=== PATIENT | male | born 1935 | race Caucasian/White ===

== ENCOUNTER 2023-04-25 19:20 | Emergency (ER) | payer MEDICARE, SELFPAY ==
[2023-04-25 19:23] VITALS: BP 160/72; BMI 25.1
[2023-04-25 19:38] LABS: % Basophils 0.6 % (0-2); % Eosinophils 1.4 % (0-6); % Immature Granulocytes 0.4 % (0-0.5); % Neutrophils 51.6 % (42.2-75.2); Absolute Basophils 0.1 10^3/uL (0-0.2); Absolute Eosinophils 0.2 10^3/uL (0-0.7); Absolute Lymphocytes 3.3 10^3/uL (1.2-3.4); Absolute Monocytes 1.5 10^3/uL (0.1-0.6); Absolute Neutrophils 5.4 10^3/uL (1.4-6.5); Hematocrit 39.7 % (39.0-52.0); Mean Corp Hgb Conc. 35.3 g/dL (33.0-37.0); Mean Corpuscular Volume 90.8 fL (80.0-94.0); Mean Platelet Volume 9.9 fL (7.4-10.4); Nucleated Red Blood Cells % 0 % (-); Platelet Count 226 10^3/uL (130-400); Red Blood Cell Count 4.37 10^6/uL (4.70-6.10); Red Cell Dist. Width 16.2 % (11.5-14.5); White Blood Cell Count 10.4 10^3/uL (4.8-10.8)
[2023-04-25 19:59] LABS: ALT (SGPT) 16 U/L (0-50); AST (SGOT) 27 U/L (17-59); Albumin 4.1 g/dl (3.5-5.0); Alkaline Phosphatase 95 U/L (38-126); Blood Urea Nitrogen 10 mg/dl (9-20); Calcium 9.3 mg/dl (8.4-10.2); Carbon Dioxide 27 mmol/L (22-30); Chloride 95 mmol/L (98-107); Estimated Creatinine Clearance 82 ml/min; Glucose 88 mg/dl (70-99); NT-proBNP 1900 pg/ml; Sodium 132 mmol/L (135-145); Total Bilirubin 0.8 mg/dl (0.2-1.3); Total Protein 7.1 g/dl (6.3-8.2); Troponin I < 0.012 ng/ml; eGFR > 60.00
[2023-04-25 20:00] VITALS: BP 143/66
--- NOTE | 2023-04-25 20:03 | ED.GENMED ---
History of Present Illness
General
Chief Complaint: Breathing Problem
Source: patient
Exam Limitations: none
Time Seen by Provider: 04/25/23 19:24
Travel History
Have you had any contact with someone who has COVID-19?: No
Do you have any symptoms of coronavirus? Fever > 100 degrees, chills, cough, shortness of breath, sore throat, loss of taste or smell, muscle aches, or headache?: No
History of Present Illness
History of Present Illness:
This is a 87 year old male that comes in with c/o SOB. States that he is friends with Dr. Soto and he told him to come to the ER. States that he has been SOB and he said that he had rales. Patient states that he has a medicare compliance auditor 18/10 that lives
with him. States that he is bedridden and that he just lays in bed and watches TV. States that he started with SOB and a cough. States that he also feels lightheaded. States that he got scarred. denies any fever, chills, chest pain, abd pain,
nausea, vomiting, diarrhea, headache, urinary burning .
Past History
Past History
ED Past Medical History: Arrthythmia (Atrial fib), CAD, Cancer (melanoma), COPD, GERD, HTN, Hypercholesterolemia, Psychiatric (Depression), Other (Peripheral vascular disease with bilateral carotid stenosis, Rheumatoid arthritis, back pain, TIA,
Spinal stenosis, PNA, Diverticulitis, Hiatal hernia, Ulcers, DVT left arm removed), Other (Bowel syndrome, prior history of atypical chest pain, Lyme disease, ) and Other (History of Lymes disease)
ED Past Surgical History: Appendectomy, Orthopedic (right hip replacement, left carpal tunnel), Tonsilectomy (Adenoids) and Other ( pancreatic cyst surgery from an injury as a child, Cataracts, Left carotid endarterectomy)
Social History
Tobacco: Smoker (1.5-2ppd)
Alcohol: Daily ([place] 3-4 glasses)
Drug: None
Personal:
Living: alone (With medicare compliance auditor 18/10)
Employment: Retired
Family History
Family History: Other (Noncontributory)
Review of Systems
Review of Systems
All Other Systems: ROS reviewed and negative except as documented in HPI and ROS
Constitutional: Reports no symptoms; Denies fever or chills
EENT: Reports no symptoms
Respiratory: Reports cough and trouble breathing
Cardiac: Reports no symptoms; Denies chest pain
ABD/GI: Reports no symptoms; Denies abdominal pain, nausea, vomiting or diarrhea
: Reports no symptoms; Denies dysuria, frequency or urgency
Musculoskeletal: Reports no symptoms
Skin: Reports no symptoms
Neurological: Reports dizzy (Lightheaded); Denies headache
Psychiatric: Reports no symptoms
Phy Exam
General Physical Exam
General Presentation: no apparent distress
General age: appears stated age
General Skin: warm and dry
General Habitus: elderly
General Mental: alert
General Hydration: dry mucous membranes
ENT Exam
ENT Exam: TM's normal, pharynx normal and neck supple
Eye Exam
Eye Exam: EOMI
Cardiovascular Exam
Cardiovascular Exam: no edema, normal peripheral pulses and irregularly irregular
Pulmonary Exam
Pulmonary Exam: no rhonchi, decreased breath sounds and other (Fine crackles at bases with Exp wheezing, Moist cough noted)
Gastrointestinal Exam
Gastrointestinal Exam: normal bowel sounds, non tender, soft, no organomegaly, no pulsatile mass and non distended
Musculoskeletal Exam
Musculoskeletal Exam: full ROM and no edema
Skin Exam
Skin Exam: normal color, warm/dry, no rash and no petechia
Psychiatric Exam
Psychiatric Exam: normal mood/affect
Scores
Heart Failure Risk
Heart Failure Risk Score: Not Applicable
Course
Orders/Labs/Results
Orders:
Orders
04/25/23 19:22
Electrocardiogram (*1) Urgent
Reason for Study: Other
Other Reason for Exam: Respiratory Distress
EKG- Treatment ONCE
CR Chest - 2 Views Urgent
Comment:
Reason For Exam: respiratory distress
04/25/23 19:27
Complete Blood Count/With Diff Urgent
Comprehensive Metabolic Panel Urgent
NT-proBNP Urgent
Troponin I Urgent
04/25/23 20:11
Ipratropium/Albuterol Sulfate [Duoneb] 3 ml INH R NOW ONE
04/25/23 20:15
COVID-19 Antigen Urgent
Source: Nasal Swab
04/25/23 22:26
Furosemide [Lasix] 40 mg IV NOW STA
Abnormal Lab Results
04/25/23
19:27
RBC 4.37 L 10^6/uL
(4.70-6.10)
MCH 32.0 H pg
(27.0-31.0)
RDW 16.2 H %
(11.5-14.5)
Absolute Monos (auto) 1.5 H 10^3/uL
(0.1-0.6)
Monocytes % 14.0 H %
(1.7-9.3)
Sodium 132 L mmol/L
(135-145)
Chloride 95 L mmol/L
(98-107)
Creatinine 0.6 L mg/dL
(0.7-1.3)
04/25/23 19:27
04/25/23 19:27
Sodium slightly low. Chloride low. Troponin <0.012, Pro-BNP 1900, COVID negative,
Vital Signs
Initial and Last Documented VS:
Initial Vital Signs
Temp Pulse Resp BP Pulse Ox
97.4 F 62 18 160/72 98
04/25/23 19:23 04/25/23 19:23 04/25/23 19:23 04/25/23 19:23 04/25/23 19:23
Last Documented Vital Signs
Temp Pulse Resp BP Pulse Ox
97.4 F 76 16 143/88 98
04/25/23 19:23 04/25/23 22:31 04/25/23 22:31 04/25/23 22:31 04/25/23 19:23
MDM/Problems Addressed
Differential Diagnosis Includes:
PNA, COPD exacerbation. CHF
MDM/Problems Addressed:
This is a 87 year old male that comes in with c/o SOB. States that he is bedridden and that he is SOB and he got scarred. States that he is friends with a physician that use to work in the ER and he was told to come to the hospital.
Will get labs, Chest x-ray
Back into see patient. Explained that his Troponin is normal and his chest x-ray is negative for any acute process. His Pro-BNP is elevated but there is no CHF. COVID is negative. Feel that the patient can go home. Will give a dose of IV Lasix to
help with any extra fluid. Patient to follow up with the family doctor. Return with any concerns.
Chronic conditions affecting care: COPD
Acute Exacerbation and/or Progression of Chronic Illness: COPD
*Radiology
Radiology exam reviewed: radiology read reviewed (Chest-No acute cardiopulmonary process)
*Pulse Oximetry
Patient hypoxic: no
*EKG
Interpreted by ED Provider?: Yes
Heart Rate: 72
Rate: normal
Rhythm: a-fib (Vs junctional)
[place]: left axis deviation
QRS Pattern: normal QRS
Ischemia: no ischemia (Checked by Dr. Herrera)
*Blower Installer Interpretation
Rate: normal
Heart Rate: 64
Rhythm: a-fib
*Critical Care Note
Total Time (30-74mins, 75-104mins- exclusive of procedures): Not Applicable
ED Attending Note
-
Portions of this chart may have been created with voice recognition software.� Occasional wrong word or��sound alike� substitutions may have occurred due to the inherent limitations of voice recognition software.
Discharge Plan
Departure
Patient Disposition: Home (Routine Discharge)
Date of Disposition: 04/25/23
Time of Disposition: 23:22
Patient with high blood pressure during this ER visit?: Yes
Condition: Good
Covid-19: Negative COVID-19
Discharge Problem:
SOB (shortness of breath)
Instructions: Shortness of Breath (Dyspnea) (DC), BLOOD PRESSURE
Prescriptions:
No Action
rosuvastatin 20 MG tablet
20 mg PO DAILY
amlodipine 5 MG tablet
5 mg PO DAILY Qty: 0 0RF
gabapentin 600 mg Tablet
600 mg PO BID@0800,1700
gabapentin 600 mg Tablet
1,200 mg PO HS
ascorbic acid (vitamin C) [Vitamin C] 500 mg Tablet
500 mg PO DAILY
tamsulosin 0.4 mg Capsule
0.4 mg PO DAILY
coenzyme Q10 [CoQ-10] 100 mg Capsule
100 mg PO DAILY
cholecalciferol (vitamin D3) [Vitamin D3] 50 mcg (2,000 unit) Tablet
50 mcg PO DAILY
Eliquis 5 mg Tablet
5 mg PO BID
psyllium husk 3.4 gram/5.4 gram Powder
1 tbsp PO DAILY
colchicine 0.6 MG tablet
0.6 mg PO DAILYPRN PRN (Reason: gout)
furosemide [Lasix] 20 mg tablet
20 mg PO Q OTHER DAY Qty: 30 0RF
prednisone 10 mg Tablet
See Rx Instructions .ROUTE .COMPLEX Qty: 30 0RF
Rx Instructions:
Take By Mouth:
40 mg daily x3 days, 30 mg daily x3 days,
20 mg daily x3 days, 10 mg daily x3 days.
Referrals:
NONE,* [Active] -
Activity Restrictions/Additional Instructions:
As discussed, your blood work is normal except your Pro-BNP which is a marker for fluid over load. This is not as high as your prior labs. Your Chest x-ray is normal. There is no Congestive heart failure. You are negative for COVID. You have been
given an IV dose of Lasix here to help pull off any extra fluid. Please follow up with the Family doctor or your Pipeline Inspector for further evaluation. IF YOU HAVE INCREASED OR CHANGING SHORTNESS OF BREATH, OR YOU HAVE ANY OTHER CONCERNS PLEASE RETURN
TO THE EMERGENCY ROOM.
Interventions
Interventions:
*Risk Screen - Suicide Last Done: 04/25/23 19:23
*General Assessment Last Done: 04/25/23 19:23
*Neglect/Abuse Screening Last Done: 04/25/23 19:23
ED- Fall Risk Assessment Last Done: 04/25/23 19:23
ED- Cardiac Assessment Last Done: 04/25/23 19:23
ED- Pulmonary Assessment Last Done: 04/25/23 19:23
[2023-04-25] MEDS: DUONEB 3 ML INH (20:15)
[2023-04-25 20:39] LABS: COVID-19 Antigen Negative (Negative)
[2023-04-25 22:31] VITALS: BP 143/88
[2023-04-25] MEDS: LASIX 40 MG IV (22:35)
== END 2023-04-26 02:29 | disposition home or self-care (01) ==
LOC: EMR 19:20
PROVIDERS: Clinical Nurse Specialist Family Health; EMERGENCY PHYSICIAN Emergency Medicine; FAMILY PHYSICIAN Family Medicine
DX: R06.02 Shortness of breath (principal); I48.91 Unspecified atrial fibrillation; I25.10 Atherosclerotic heart disease of native coronary artery without angina pectoris; J44.1 Chronic obstructive pulmonary disease with (acute) exacerbation; K21.9 Gastro-esophageal reflux disease without esophagitis; I11.0 Hypertensive heart disease with heart failure; I50.9 Heart failure, unspecified; I73.9 Peripheral vascular disease, unspecified; I65.23 Occlusion and stenosis of bilateral carotid arteries; M06.9 Rheumatoid arthritis, unspecified; M48.00 Spinal stenosis, site unspecified; E78.00 Pure hypercholesterolemia, unspecified; F17.210 Nicotine dependence, cigarettes, uncomplicated; Z74.01 Bed confinement status; Z85.820 Personal history of malignant melanoma of skin; Z86.718 Personal history of other venous thrombosis and embolism; Z86.73 Personal history of transient ischemic attack (TIA), and cerebral infarction without residual deficits; Z90.49 Acquired absence of other specified parts of digestive tract; Z96.641 Presence of right artificial hip joint
CPT/HCPCS: 99283; 94640; 96374; 71046; 80053; 83880; 84484; 85025; 87811; 93005

== ENCOUNTER 2023-05-17 10:58 | Emergency (ER) | payer MEDICARE, SELFPAY ==
[2023-05-17 11:00] VITALS: BP 134/60
[2023-05-17 11:23] VITALS: BMI 24.1
[2023-05-17 11:42] LABS: % Basophils 0.3 % (0-2); % Immature Granulocytes 0.4 % (0-0.5); % Lymphocytes 28.1 % (20.5-51.1); % Monocytes 14.9 % (1.7-9.3); % Neutrophils 55.3 % (42.2-75.2); Absolute Eosinophils 0.1 10^3/uL (0-0.7); Absolute Lymphocytes 2.2 10^3/uL (1.2-3.4); Absolute Monocytes 1.2 10^3/uL (0.1-0.6); Absolute Neutrophils 4.4 10^3/uL (1.4-6.5); Hematocrit 38.4 % (39.0-52.0); Hemoglobin 13.4 g/dL (13.0-18.0); Mean Corp Hgb Conc. 34.9 g/dL (33.0-37.0); Mean Corpuscular Hgb 32.3 pg (27.0-31.0); Mean Corpuscular Volume 92.5 fL (80.0-94.0); Mean Platelet Volume 10.9 fL (7.4-10.4); Nucleated Red Blood Cells % 0 % (-); Platelet Count 183 10^3/uL (130-400); Red Blood Cell Count 4.15 10^6/uL (4.70-6.10); Red Cell Dist. Width 14.9 % (11.5-14.5); White Blood Cell Count 7.9 10^3/uL (4.8-10.8)
[2023-05-17 11:54] LABS: INR 1.19; PT 14.9 Sec (11.4-14.6)
[2023-05-17 11:55] LABS: APTT 40.3 Sec (23.4-35.0)
[2023-05-17 12:00] VITALS: BP 128/55
[2023-05-17 13:00] VITALS: BP 118/63
[2023-05-17 13:01] LABS: ALT (SGPT) 19 U/L (0-50); AST (SGOT) 30 U/L (17-59); Albumin 3.2 g/dl (3.5-5.0); Alkaline Phosphatase 93 U/L (38-126); Blood Urea Nitrogen 19 mg/dl (9-20); Calcium 8.8 mg/dl (8.4-10.2); Carbon Dioxide 31 mmol/L (22-30); Chloride 97 mmol/L (98-107); Estimated Creatinine Clearance 72 ml/min; Glucose 95 mg/dl (70-99); Sodium 132 mmol/L (135-145); Total Bilirubin 0.8 mg/dl (0.2-1.3); Total Protein 6.3 g/dl (6.3-8.2); eGFR > 60.00
[2023-05-17 14:00] VITALS: BP 154/52
--- NOTE | 2023-05-17 14:06 | ED.GENMED ---
History of Present Illness
General
Chief Complaint: Rectal Bleeding
Source: patient and primary care nurse practitioner
Exam Limitations: none
Time Seen by Provider: 05/17/23 11:17
Nursing documentation reviewed up to this point in time: agreed with
Travel History
Have you had any contact with someone who has COVID-19?: No
Do you have any symptoms of coronavirus? Fever > 100 degrees, chills, cough, shortness of breath, sore throat, loss of taste or smell, muscle aches, or headache?: No
History of Present Illness
History of Present Illness:
87-year-old male presents emergency department due to bright red blood in stool for the past 4 to 5 days. He denies any other complaints, but states his urine was darker.
Past History
Past History
ED Past Medical History: Arrthythmia (Atrial fib), CAD, Cancer (melanoma), COPD, GERD, HTN, Hypercholesterolemia, Psychiatric (Depression), Other (Peripheral vascular disease with bilateral carotid stenosis, Rheumatoid arthritis, back pain, TIA,
Spinal stenosis, PNA, Diverticulitis, Hiatal hernia, Ulcers, DVT left arm removed), Other (Bowel syndrome, prior history of atypical chest pain, Lyme disease, ) and Other (History of Lymes disease)
ED Past Surgical History: Appendectomy, Orthopedic (right hip replacement, left carpal tunnel), Tonsilectomy (Adenoids) and Other ( pancreatic cyst surgery from an injury as a child, Cataracts, Left carotid endarterectomy)
Social History
Tobacco: Smoker (1.5-2ppd)
Alcohol: Daily ([place] 3-4 glasses)
Drug: None
Personal:
Living: alone (With primary care nurse practitioner 18/10)
Employment: Retired
Family History
Family History: Other (Noncontributory)
Review of Systems
Review of Systems
Allergies reviewed?: Yes
All Other Systems: Not applicable
Constitutional: Reports no symptoms
EENT: Reports no symptoms
Respiratory: Reports no symptoms
Cardiac: Reports no symptoms
ABD/GI: Reports bloody stools
: Reports dark urine
Musculoskeletal: Reports no symptoms
Skin: Reports no symptoms
Neurological: Reports no symptoms
Endocrine: Reports no symptoms
Hematologic/Lymphatic: Reports no symptoms
Psychiatric: Reports no symptoms
Phy Exam
Physical Exam
Physical Exam:
Physical Exam
General: no apparent distress, not acutely ill
Neck: supple. no meningeal signs. normal posterior pharynx
Heart: s1/s2 regular rate and rhythm, no murmur. equal radial
pulses.
HEENT: Pupils equal round reactive to light, EOMI
Lungs: no acute respiratory distress. clear bilaterally
Abdomen: normal bowel sounds. not tender. no CVAT, rectal exam guaiac negative brown stool
Neuro: alert and oriented. no focal neurological deficits cranial nerves II through XII intact
Skin: no rash
Psychiatric: well kept. interactive and cooperative
Extremities: no edema. no calf tenderness. negative homans. good distal pulses
Course
Orders/Labs/Results
Orders:
Orders
05/17/23 11:22
IV Insert/Care/Rem.- Treatment PRN
05/17/23 11:24
Complete Blood Count/With Diff Urgent
PTT Urgent
Prothrombin Time Urgent
05/17/23 11:52
Bladder Scan- Treatment ONCE
05/17/23 12:35
Type+Screen Urgent
BBK Wristband Number:
Comprehensive Metabolic Panel Urgent
05/17/23 13:37
Urinalysis Reflex To Culture Urgent
Date Specimen was Collected: 05/17/23
Time Specimen was Collected: 13:37
Urine Microscopic Reflex Cult Urgent
Abnormal Lab Results
05/17/23 05/17/23 05/17/23
11:24 12:35 13:37
RBC 4.15 L 10^6/uL
(4.70-6.10)
Hct 38.4 L %
(39.0-52.0)
MCH 32.3 H pg
(27.0-31.0)
RDW 14.9 H %
(11.5-14.5)
MPV 10.9 H fL
(7.4-10.4)
Absolute Monos (auto) 1.2 H 10^3/uL
(0.1-0.6)
Monocytes % 14.9 H %
(1.7-9.3)
PT 14.9 H Sec
(11.4-14.6)
APTT 40.3 H Sec
(23.4-35.0)
Sodium 132 L mmol/L
(135-145)
Chloride 97 L mmol/L
(98-107)
Carbon Dioxide 31 H mmol/L
(22-30)
Albumin 3.2 L g/dl
(3.5-5.0)
Leukocyte Esterase Rfl Trace A
(Negative)
05/17/23 11:24
05/17/23 12:35
Vital Signs
Initial and Last Documented VS:
Initial Vital Signs
Temp Pulse Resp BP Pulse Ox
98.5 F 72 16 134/60 98
05/17/23 11:00 05/17/23 11:00 05/17/23 11:00 05/17/23 11:00 05/17/23 11:00
Last Documented Vital Signs
Temp Pulse Resp BP Pulse Ox
98.5 F 58 13 128/55 95
05/17/23 11:00 05/17/23 12:00 05/17/23 12:00 05/17/23 12:00 05/17/23 12:00
MDM/Problems Addressed
Differential Diagnosis Includes:
GI bleed, UTI
MDM/Problems Addressed:
87-year-old male with episode of bloody stool, none in ED, no signs of UTI or blood in urine. Patient stable for discharge.
Chronic conditions affecting care:
Spinal stenosis
*Pulse Oximetry
Patient hypoxic: no
*EKG
Interpreted by ED Provider?: NA
*Histopath Tech Interpretation
Rate: Histopath Tech- N/A
*Critical Care Note
Total Time (30-74mins, 75-104mins- exclusive of procedures): Not Applicable
Patient Management
Social determinants of health affecting care: Living situation
Escalation/DeEscalation of care consider admission/obs:
Admit not indicated
ED Attending Note
-
Portions of this chart may have been created with voice recognition software.� Occasional wrong word or��sound alike� substitutions may have occurred due to the inherent limitations of voice recognition software.
Discharge Plan
Departure
Patient Disposition: Home (Routine Discharge)
Date of Disposition: 05/17/23
Time of Disposition: 14:26
Patient with high blood pressure during this ER visit?: Yes
Condition: Good
Discharge Problem:
Blood in stool
Instructions: Bloody Stools, Adult (DC), BLOOD PRESSURE
Prescriptions:
No Action
rosuvastatin 20 MG tablet
20 mg PO DAILY
Patient Comments:
05/17/2023, per pt., he takes this med. sporadically but prescribed daily.
amlodipine 5 MG tablet
5 mg PO DAILY Qty: 0 0RF
gabapentin 600 mg Tablet
600 mg PO BID@0800,1700
gabapentin 600 mg Tablet
1,200 mg PO HS
coenzyme Q10 [CoQ-10] 100 mg Capsule
100 mg PO DAILY
Eliquis 5 mg Tablet
5 mg PO BID
psyllium husk 3.4 gram/5.4 gram Powder
1 tbsp PO HS
colchicine 0.6 MG tablet
0.6 mg PO DAILYPRN PRN (Reason: gout)
melatonin 5 mg Tablet
5 mg PO HS PRN (Reason: sleep)
furosemide [Lasix] 20 mg tablet
20 mg PO DAILY
tamsulosin 0.4 mg Capsule
0.4 mg PO DAILY PRN (Reason: prostate)
Patient Comments:
05/17/2023, patient takes this med. as needed but prescribed daily.
docusate sodium [Stool Softener] 100 mg Capsule
100 mg PO HSPRN PRN (Reason: constipation)
cholecalciferol (vitamin D3)
1 tab PO DAILYPRN PRN (Reason: supplement)
benzonatate 100 mg Capsule
100 mg PO TID PRN (Reason: cough)
Referrals:
Florentin Lomeli DO [Family Provider] -
Ely Santoyo MD [Active] - Call in 1-3 days for appt
Activity Restrictions/Additional Instructions:
Follow up with primary care and gastroenterology. Return for any concerns.
Interventions
Interventions:
*Risk Screen - Suicide Last Done: 05/17/23 11:00
*General Assessment Last Done: 05/17/23 11:00
*Neglect/Abuse Screening Last Done: 05/17/23 11:00
ED- Fall Risk Assessment Last Done: 05/17/23 11:22
*ED COVID-19 Vaccine History Last Done: 05/17/23 11:21
RF-Ioegot-[id number] Assessment Last Done: 05/17/23 11:31
ED- Cardiac Assessment Last Done: 05/17/23 11:31
ED- Pulmonary Assessment Last Done: 05/17/23 11:31
[2023-05-17 14:19] LABS: Urine Albumin Negative (Neg - Trace); Urine Bilirubin Negative (Negative); Urine Character Clear (Clear); Urine Color Yellow; Urine Glucose Negative (Negative); Urine Ketone Negative (Negative); Urine Leukocyte Trace (Negative); Urine Nitrite Negative (Negative); Urine Occult Blood Negative (Negative); Urine Specific Gravity 1.015 (<1.030); Urine Urobilinogen Negative (Neg - 1+)
[2023-05-17 14:37] LABS: Urine Red Blood Cell 0-2 /HPF (0-2)
== END 2023-05-17 14:48 | disposition home or self-care (01) ==
LOC: EMR 10:58
PROVIDERS: EMERGENCY PHYSICIAN Emergency Medicine; FAMILY PHYSICIAN Family Medicine
DX: K92.1 Melena (principal); I48.91 Unspecified atrial fibrillation; I25.10 Atherosclerotic heart disease of native coronary artery without angina pectoris; J44.9 Chronic obstructive pulmonary disease, unspecified; K21.9 Gastro-esophageal reflux disease without esophagitis; I10 Essential (primary) hypertension; E78.00 Pure hypercholesterolemia, unspecified; I73.9 Peripheral vascular disease, unspecified; M06.9 Rheumatoid arthritis, unspecified; F17.210 Nicotine dependence, cigarettes, uncomplicated; Z85.820 Personal history of malignant melanoma of skin; Z86.718 Personal history of other venous thrombosis and embolism; Z86.73 Personal history of transient ischemic attack (TIA), and cerebral infarction without residual deficits; Z90.49 Acquired absence of other specified parts of digestive tract; Z96.641 Presence of right artificial hip joint
CPT/HCPCS: 99283; 80053; 81003; 81015; 85025; 85610; 85730; 86850; 86900; 86901

== ENCOUNTER → 2023-10-28 10:53 | Outpatient (REF) | payer MEDICARE, SELFPAY | LOC: REG 10:53 | PROVIDERS: ATTENDING PHYSICIAN Family Medicine | DX: N39.0 Urinary tract infection, site not specified (principal) | CPT/HCPCS: 36415; 87086 ==

== ENCOUNTER → 2023-11-18 15:28 | Outpatient (REF) | payer MEDICARE, SELFPAY ==
[2023-11-18 19:03] LABS: Blood Urea Nitrogen 11 mg/dl (9-20); Calcium 9.6 mg/dl (8.4-10.2); Carbon Dioxide 25 mmol/L (22-30); Chloride 97 mmol/L (98-107); Glucose 128 mg/dl (70-99); Potassium 5.3 mmol/L (3.5-5.1); Sodium 132 mmol/L (135-145); eGFR > 60.00
== END ==
LOC: CLAB 15:28
PROVIDERS: ATTENDING PHYSICIAN Family Medicine
DX: J44.9 Chronic obstructive pulmonary disease, unspecified (principal); I10 Essential (primary) hypertension
CPT/HCPCS: 80048

== ENCOUNTER → 2023-11-18 15:30 | Outpatient (REF) | payer MEDICARE, SELFPAY ==
[2023-11-18 19:37] LABS: Urine Albumin Negative (Neg - Trace); Urine Bilirubin Negative (Negative); Urine Character Clear (Clear); Urine Color Yellow; Urine Glucose Negative (Negative); Urine Ketone Negative (Negative); Urine Leukocyte Negative (Negative); Urine Nitrite Negative (Negative); Urine Occult Blood Negative (Negative); Urine Urobilinogen Negative (Neg - 1+)
== END ==
LOC: CLAB 15:30
PROVIDERS: ATTENDING PHYSICIAN Family Medicine
DX: N39.0 Urinary tract infection, site not specified (principal)
CPT/HCPCS: 81003

== ENCOUNTER → 2024-01-27 11:54 | Outpatient (REF) | payer MEDICARE, SELFPAY ==
[2024-01-27 16:48] LABS: Blood Urea Nitrogen 13 mg/dl (9-20); Calcium 9.4 mg/dl (8.4-10.2); Carbon Dioxide 27 mmol/L (22-30); Chloride 96 mmol/L (98-107); Glucose 80 mg/dl (70-99); Potassium 4.5 mmol/L (3.5-5.1); Sodium 133 mmol/L (135-145); eGFR > 60.00
== END ==
LOC: CLAB 11:54
PROVIDERS: ATTENDING PHYSICIAN Family Medicine
DX: M10.00 Idiopathic gout, unspecified site (principal); I10 Essential (primary) hypertension
CPT/HCPCS: 36415; 80048